=== PATIENT | female | born 1975 | race Caucasian/White ===

== ENCOUNTER 2020-12-31 12:59 | Emergency (ER) | payer OTHER, SELFPAY ==
--- NOTE | ~2020-12-31 | XR_ITS ---
XR foot LT min 3V 12/31/2020 13:28 Indication: Left foot pain Procedure: 4 views left foot Comparison: No prior studies for comparison. Findings: There is surgical fusion at the first, second and third tarsal-metatarsal joints. There is mild osteoarthritis of the first MTP joint. There are degenerative calcaneal spurs. There is a nondis placed fracture base of the fifth proximal phalanx. No significant soft tissue abnormality. No foreig n bodies. Impression: 1: Nondisplaced fracture base of the left fifth proximal phalanx. Reviewed, dictated and finalized at location A. Impression: 1: Nondisplaced fracture base of the left fifth proximal phalanx.
[2020-12-31 13:02] VITALS: BP 145/65; PULSE 91; RESP 20; TEMP 36.3; O2SAT 96
--- NOTE | 2020-12-31 14:46 | ED.GENADULT ---
HPI - General Adult General Chief complaint: Extremity Injury, Lower Stated complaint: LEFT FOOT INJURY Time Seen by Provider: 12/31/20 13:11 Source: patient Mode of arrival: ambulatory Limitations: no limitations History of Present Illness HPI narrative: Patient presents for evaluation of left foot pain. She indicates that she stubbed her foot against an unknown object at home just prior to arrival. She states she recently moved so there were many boxes in the living space. She states pain has been constant since that time. Pain at rest is 5/10 in severity but increased to 8/10 with weight bearing. She has some numbness in 5th digit of that foot. She has not taken any medication for her symptoms. Has had multiple surgeries on her left foot in the past. Related Data Allergies Allergy/AdvReac Type Severity Reaction Status Date / Time No Known Allergies Allergy Verified 12/31/20 13:04 Review of Systems Review of Systems: CONSTITUTIONAL: Denies fever, chills, or sweats. EYES: Denies visual changes, redness, or discharge. ENT: Denies rhinorrhea, congestion, sore throat, or otalgia. CARDIOVASCULAR: Denies chest pain, palpitations, or edema. RESPIRATORY: Denies cough or dyspnea. GASTROINTESTINAL: Denies abdominal pain, nausea, vomiting, or diarrhea. GENITOURINARY: Denies dysuria or hematuria. SKIN: Denies rash or itching. MUSCULOSKELETAL:Reports left foot pain. Denies back pain NEUROLOGIC: Reports numbness in 5th digit of left foot. Denies headache, dizziness, or weakness. PSYCHIATRIC: Denies anxiety or depression. [facility] Past Medical History Medical History (Updated 12/31/20 @ 15:14 by JOSSELYN GermainP, ) Hypertension Thyroid disease Surgical History Surgical History H/O thyroidectomy Status post left foot surgery Family History Family History (Reviewed 12/31/20 @ 15:10 by Eulogio Akbar [facility], ) Father Diabetes mellitus Social History Social History (Updated 12/31/20 @ 15:10 by JOSSELYN GermainP, ) Smoking packs per day: 0.5 Smoking cigarettes per day: 10.0 Smoking status: Current every day smoker Substance use: never Gender identity (if verbalized by the patient): Female Sexual Orientation (if Verbalized by the Patient): Straight or Heterosexual Spiritual care concerns: No Exam Narrative: GENERAL: Well-appearing, well-nourished, and in no acute distress. HEAD: Normocephalic, atraumatic. EYES: PERRLA and EOMI. ENT: Nares clear, no rhinorrhea or epistaxis. Mucous membranes moist. Oropharynx without tonsillar hypertrophy exudate or other lesions. Bilateral TMs pearly tomlinson nonbulging NECK: Supple. No adenopathy or masses. No carotid bruits or JVD CHEST: Clear to auscultation. No respiratory distress. No wheezes rales or rhonchi HEART: Regular rate and rhythm. No murmur heard. Normal peripheral pulses. ABDOMEN: Soft, nontender, nondistended, normal active bowel sounds. EXTREMITIES: Tenderness noted over the proximal phalanx of the fifth digit of the left foot as well as overlying the fourth and fifth metatarsals left foot. Normal range of motion. No edema. SKIN: Linear surgical scar overlying the dorsal aspect of the left foot with hyperpigmented changes noted. Scars well approximated without drainage or erythema. Warm, dry, no rash. NEURO: No focal deficits. Alert and oriented x3. PSYCH: Normal mood and affect. Course Course Emergency Course: Seven 45-year-old female who presented with complaints of left foot pain. X-ray showed nondisplaced fracture of the proximal phalanx of the fifth digit of the left foot. Toradol in the emergency department. Will discharge with a prescription for [place]. Fourth and fifth digits of the left foot were madhav taped and patient was provided with a postop shoe. Advised on necessity for follow up and return for worsening symptoms. Pt in agreement with plan of care. Vital Signs V
[2020-12-31] MEDS: KETOROLAC (*BKC) 60 MG/2 ML VIAL IM (14:52)
== END 2020-12-31 15:27 | disposition home or self-care (01) ==
PROVIDERS: Emergency Provider Nurse Practitioner
DX: S92.515A Nondisplaced fracture of proximal phalanx of left lesser toe(s), initial encounter for closed fracture (principal); I10 Essential (primary) hypertension; E07.9 Disorder of thyroid, unspecified; F17.210 Nicotine dependence, cigarettes, uncomplicated; W22.8XXA Striking against or struck by other objects, initial encounter
CPT/HCPCS: 73630; 96372; 99284; J1885

== ENCOUNTER 2021-05-25 19:40 | Emergency (ER) | payer OTHER, SELFPAY ==
--- NOTE | ~2021-05-25 | XR_ITS ---
EXAMINATION: XR knee LT 3V DATE: 05/25/2021 23:49 INDICATION: Left knee pain TECHNIQUE: Three views of the left knee were obtained. COMPARISON: None. FINDINGS: Alignment is normal. No fracture or osteochondral lesion. Joint spaces are normal with no e rosions. No joint effusion/synovitis. Soft tissues are unremarkable. IMPRESSION: 1. No acute osseous abnormality. Reviewed, dictated and finalized at location F. RITY LEAD
[2021-05-25 19:49] VITALS: BP 151/78; PULSE 97; RESP 18; TEMP 37; O2SAT 100
[2021-05-25 23:31] VITALS: BP 144/90; PULSE 80; RESP 17; O2SAT 98
--- NOTE | 2021-05-25 23:37 | ED.EXTPRO ---
HPI - Extremity Problem General Chief complaint: Extremity Problem,Nontraumatic Stated complaint: left knee pain Time Seen by Provider: 05/25/21 23:37 Source: patient Mode of arrival: ambulatory Limitations: no limitations History of Present Illness HPI Narrative: Patient complaining of left knee pain started few hours ago while vacuuming the floor.. Patient denies other injuries. Related Data Allergies Allergy/AdvReac Type Severity Reaction Status Date / Time No Known Allergies Allergy Verified 05/25/21 23:34 Review of Systems Review of Systems: CONSTITUTIONAL: Denies fever, chills, or sweats. EYES: Denies visual changes, redness, or discharge. ENT: Denies rhinorrhea, congestion, sore throat, or otalgia. CARDIOVASCULAR: Denies chest pain, palpitations, or edema. RESPIRATORY: Denies cough or dyspnea. GASTROINTESTINAL: Denies abdominal pain, nausea, vomiting, or diarrhea. GENITOURINARY: Denies dysuria or hematuria. SKIN: Denies rash or itching. MUSCULOSKELETAL: Denies back pain, joint pain, or myalgia. NEUROLOGIC: Denies headache, numbness, or weakness. PSYCHIATRIC: Denies anxiety or depression. PMFSH Past Medical History Medical History Hypertension Thyroid disease Surgical History Surgical History H/O thyroidectomy Status post left foot surgery Family History Family History Father Diabetes mellitus Social History Social History Smoking packs per day: 0.5 Smoking cigarettes per day: 10.0 Smoking status: Current every day smoker Substance use: never Gender identity (if verbalized by the patient): Female Sexual Orientation (if Verbalized by the Patient): Straight or Heterosexual Spiritual care concerns: No Exam Narrative: General appearance: Well-developed, well-nourished, patient is morbidly obese Skin: Normal color Head: Normocephalic, nontraumatic Neck: Supple, nontender Chest and respiratory: Airway patent, no respiratory distress, no accessory muscle use Heart: Regular rate/rhythm Musculoskeletal: Slight tenderness anterior medially, no bruises, no swelling, slight limited range of motion Neurologic: Alert and oriented ?3, Course Course Emergency Course: Stable Vital Signs Vital signs: Vital Signs Temperature 37.0 C 05/25/21 19:49 Pulse Rate 97 05/25/21 19:49 Respiratory Rate 18 05/25/21 19:49 Blood Pressure 151/78 H 05/25/21 19:49 Pulse Oximetry 100 05/25/21 19:49 Temperature 37.0 C 05/25/21 19:49 Pulse Rate 80 05/25/21 23:31 Respiratory Rate 17 05/25/21 23:31 Blood Pressure 144/90 H 05/25/21 23:31 Pulse Oximetry 98 05/25/21 23:31 MDM - Extremity (Nontraumatic) Imaging Data My impression: Left knee x-ray showed no acute abnormality Critical Care Time Critical Care Time Critical Care Time: No Discharge Plan Discharge Clinical Impression: Knee sprain Qualifiers: Encounter type: initial encounter Involved ligament of knee: unspecified ligament Laterality: left Qualified Code(s): S83.92XA - Sprain of unspecified site of left knee, initial encounter Patient Disposition: Home, Self-Care Condition: Stable Instructions: Antibiotic Form, Knee Sprain (ED), Knee Immobilizer (ED) Additional Instructions: Return if symptoms are worsening , call your family physician for appointment, take Tylenol as as needed for aches and pain, continue home medications., Ibuprofen 600 every 6 hours, knee immobilizer Prescriptions: No Action hydrocodone-acet
--- NOTE | 2021-05-25 23:46 | PC.NURSE ---
Pt to XRAY via w/c at this time.
[2021-05-25] MEDS: IBUPROFEN 400 MG TABLET 800 MG PO (23:57)
== END 2021-05-26 00:42 | disposition home or self-care (01) ==
PROVIDERS: Emergency Provider Emergency Medicine; PCP Internal Medicine
DX: S83.92XA Sprain of unspecified site of left knee, initial encounter (principal); I10 Essential (primary) hypertension; E89.0 Postprocedural hypothyroidism; F17.210 Nicotine dependence, cigarettes, uncomplicated; X50.9XXA Other and unspecified overexertion or strenuous movements or postures, initial encounter; Y93.E3 Activity, vacuuming
CPT/HCPCS: 73562; 99283; A9270

== ENCOUNTER 2021-11-06 17:06 | Emergency (ER) | payer OTHER, SELFPAY ==
[2021-11-06 17:23] VITALS: BP 143/73; PULSE 89; RESP 16; TEMP 36.4; O2SAT 98
--- NOTE | 2021-11-06 17:44 | ED.WOUNDLAC ---
HPI - Wound/Laceration General Chief Complaint: Wound/Laceration Stated Complaint: left big toe swollen Time Seen by Provider: 11/06/21 17:44 Source: patient Mode of arrival: ambulatory Limitations: no limitations History of Present Illness HPI narrative: 46 yo F presents with concern for infection to L great toe. Reports that she cut toenail approx. 1 wk ago. Started having pain, redness 4 to 5 days ago. Has had drainage from cuticle. Redness getting progressively worse with swelling and increased pain. Denies fever. No hx of DM. All systems reviewed and negative except as noted above. Related Data Home Medications Medication Instructions Recorded Confirmed atorvastatin 20 mg tablet 20 tablet PO DAILY 11/06/21 11/06/21 fenofibrate 160 mg tablet 160 tablet PO DAILY 11/06/21 11/06/21 fluoxetine 20 mg capsule 1 cap PO DAILY 11/06/21 11/06/21 gabapentin 300 mg capsule 1 cap PO HS 11/06/21 11/06/21 levothyroxine 50 mcg tablet 1 tablet PO DAILY 11/06/21 11/06/21 (Euthyrox) Allergies Allergy/AdvReac Type Severity Reaction Status Date / Time No Known Allergies Allergy Verified 11/06/21 17:20 Review of Systems Review of Systems: CONSTITUTIONAL: Denies fever, chills, or sweats. EYES: Denies visual changes, redness, or discharge. ENT: Denies rhinorrhea, congestion, sore throat, or otalgia. CARDIOVASCULAR: Denies chest pain, palpitations, or edema. RESPIRATORY: Denies cough or dyspnea. GASTROINTESTINAL: Denies abdominal pain, nausea, vomiting, or diarrhea. GENITOURINARY: Denies dysuria or hematuria. SKIN: Denies rash or itching. Reports redness, swelling, tenderness to left great toe. MUSCULOSKELETAL: Denies back pain, joint pain, or myalgia. NEUROLOGIC: Denies headache, numbness, or weakness. PSYCHIATRIC: Denies anxiety or depression. All other systems reviewed are negative, except as documented in HPI. [facility] Past Medical History Medical History Hypertension Thyroid disease Surgical History Surgical History H/O thyroidectomy Status post left foot surgery Family History Family History Father Diabetes mellitus Social History Social History Smoking packs per day: 0.5 Smoking cigarettes per day: 10.0 Smoking status: Current every day smoker Substance use: never Gender identity (if verbalized by the patient): Female Sexual Orientation (if Verbalized by the Patient): Straight or Heterosexual Spiritual care concerns: No Comments At time of signature, agree with nursing past medical, surgical, social and family history. There is no relevant family history pertinent to the presenting complaint. Exam Narrative: GENERAL: This is a well-nourished, well-developed patient, in no apparent distress. HEAD: normocephalic, atraumatic. EYES: PERRL. Sclera clear/white. Vision is grossly intact. EARS: External ears normal NOSE: External nose normal NECK: Neck supple, non-tender without lymphadenopathy, masses or thyromegaly. CARDIOVASCULAR: Regular rate and rhythm without murmurs, gallops, or rubs. RESPIRATORY: Clear to auscultation. Breath sounds equal bilaterally. No wheezes, rales, or rhonchi. SKIN: warm, Dry, intact with no suspicious lesions or rash, good texture and turgor. Erythema, swelling, tenderness on palpation to medial aspect of left great toe. Erythema is surrounding toenail. NEURO: awake, alert, and oriented to person, place and time. There were no obvious focal neurologic abnormalities. EXTREMITIES: No joint tenderness, effusion, or edema noted. Course Course Level of Care: Express Care Visit Vital Signs Vital signs: Vital Signs Temperature 36.4 C 11/06/21 17:23 Pulse Rate 89 11/06/21 17:23 Respiratory Rate 16 11/06/21 17:23 Blood Pressure 143/73 H 11/06/21 17:23
== END 2021-11-06 17:55 | disposition home or self-care (01) ==
PROVIDERS: Emergency Provider Nurse Practitioner Family
DX: L03.032 Cellulitis of left toe (principal); F17.210 Nicotine dependence, cigarettes, uncomplicated; I10 Essential (primary) hypertension; E89.0 Postprocedural hypothyroidism
CPT/HCPCS: 99213; G0463

== ENCOUNTER 2022-06-12 17:12 | Emergency (ER) | payer OTHER, SELFPAY ==
--- NOTE | ~2022-06-12 | XR_ITS ---
EXAMINATION: XR chest 2V DATE: 06/12/2022 18:03 INDICATION: Cough. TECHNIQUE: Frontal and lateral views of the chest were obtained. COMPARISON: None. FINDINGS: There is no pneumonia, pleural effusion, or pneumothorax. The heart size is normal. Surgica l clips in the right upper quadrant are likely from cholecystectomy. IMPRESSION: 1. No acute cardiopulmonary disease. Reviewed, dictated and finalized at location A. TEACHER
[2022-06-12 17:20] VITALS: BP 144/93; PULSE 76; RESP 16; TEMP 36.5; O2SAT 98
--- NOTE | 2022-06-12 17:51 | ED.GENADULT ---
HPI - General Adult General Chief complaint: Upper Respiratory Infection Stated complaint: fever, sore throat, rt ear pain Source: patient Mode of arrival: ambulatory Limitations: no limitations History of Present Illness HPI narrative: Patient presents for evaluation of sick symptoms since last week Saturday. She indicates she initially had a fever and sore throat. She has since developed bilateral otalgia, cough, mild wheezing and shortness of breath only during coughing episodes. she denies any nausea, vomiting, diarrhea. She states that her daughter had strep recently but she has only seen her once in the last week. She smokes approximately a quarter pack per day. She has never had COVID. She states that her fever has improved but she occasionally does have mild fever at night. Denies any other complaints or concerns. Related Data Home Medications Medication Instructions Recorded Confirmed fenofibrate 160 mg tablet 160 tablet PO DAILY 11/06/21 06/12/22 fluoxetine 20 mg capsule 1 cap PO DAILY 11/06/21 06/12/22 gabapentin 300 mg capsule 1 cap PO HS 11/06/21 06/12/22 atorvastatin 40 mg tablet 40 mg PO DAILY 06/12/22 06/12/22 levothyroxine 200 mcg tablet 200 mcg PO DAILY 06/12/22 06/12/22 Allergies Allergy/AdvReac Type Severity Reaction Status Date / Time No Known Allergies Allergy Verified 06/12/22 17:24 Review of Systems Review of Systems: CONSTITUTIONAL: Reports fever. Denies chills or sweats. EYES: Denies visual changes, redness, or discharge. ENT: Reports sore throat and bilateral otalgia.Denies rhinorrhea and congestion CARDIOVASCULAR: Denies chest pain, palpitations, or edema. RESPIRATORY: reports cough, mild wheezing and shortness of breath only with coughing episodes GASTROINTESTINAL: Denies abdominal pain, nausea, vomiting, or diarrhea. GENITOURINARY: Denies dysuria or hematuria. SKIN: Denies rash or itching. MUSCULOSKELETAL: Denies back pain, joint pain, or myalgia. NEUROLOGIC: Denies headache, numbness, dizziness, or weakness. PSYCHIATRIC: Denies anxiety or depression. [facility] Past Medical History Medical History (Updated 06/12/22 @ 18:52 by Eulogio Akbar, PAULA, HERNAN) Hypertension Thyroid disease Surgical History Surgical History H/O thyroidectomy History of cholecystectomy History of foot surgery Status post left foot surgery Family History Family History Father Diabetes mellitus Social History Social History (Updated 06/12/22 @ 17:55 by Eulogio Akbar [facility]) Smoking packs per day: 0.25 Smoking cigarettes per day: 5.0 Smoking status: Current every day smoker Substance use: never Gender identity (if verbalized by the patient): Female Sexual Orientation (if Verbalized by the Patient): Straight or Heterosexual Spiritual care concerns: No Exam Narrative: GENERAL: Well-appearing, well-nourished, and in no acute distress. HEAD: Normocephalic, atraumatic. EYES: PERRLA and EOMI. ENT: Nares clear, no rhinorrhea or epistaxis. Mucous membranes moist. Oropharynx without tonsillar hypertrophy exudate or other lesions. Bilateral TMs pearly tomlinson nonbulging NECK: Supple. No adenopathy or masses. No carotid bruits or JVD CHEST: Cough present on exam. Poor inspiratory effort. Clear to auscultation but diminished in the bases. No respiratory distress. No wheezes rales or rhonchi HEART: Regular rate and rhythm. No murmur heard. Normal peripheral pulses. ABDOMEN: Soft, nontender, nondistended, normal active bowel sounds. EXTREMITIES: Normal range of motion. No edema. SKIN: Warm, dry, no rash. NEURO: No focal deficits. Alert and oriented x3. PSYCH: Normal mood and affect. Course Course Emergency Course: This is a 47-year-old female who presented for evaluation of sick symptoms. Strep, COVID, influenza, chest x-ray were all negative. Exam is c
== END 2022-06-12 19:03 | disposition home or self-care (01) ==
PROVIDERS: Emergency Provider Nurse Practitioner; PCP Internal Medicine
DX: J06.9 Acute upper respiratory infection, unspecified (principal); Z20.822 Contact with and (suspected) exposure to COVID-19; F17.210 Nicotine dependence, cigarettes, uncomplicated; I10 Essential (primary) hypertension; E89.0 Postprocedural hypothyroidism
CPT/HCPCS: 71046; 87081; 87426; 87804; 87880; 99213; C9803; G0463

== ENCOUNTER 2022-07-02 15:10 | Emergency (ER) | payer OTHER, SELFPAY ==
[2022-07-02 15:24] VITALS: BP 142/88; PULSE 84; RESP 16; TEMP 36.9; O2SAT 98
--- NOTE | 2022-07-02 15:26 | ED.URI ---
HPI - URI/Sore Throat General Chief Complaint: Upper Respiratory Infection Stated Complaint: white spots on throat, rt ear hearing loss Time Seen by Provider: 07/02/22 15:20 Source: patient Mode of arrival: ambulatory Limitations: no limitations History of Present Illness HPI Narrative: Lizbeth is a 47-year-old female patient presenting to the clinic today with complaints of decreased hearing in the right ear as well as a sore throat with white spots on her tonsils. She reports that she has been sick for over 2 weeks. Was seen here in the clinic on June 12 and was prescribed prednisone, albuterol inhaler, and Mucinex DM. She had a COVID, flu, strep and chest x-ray done at that time and all these tests were negative. She reports that she has taken all the medicines and she states she feels worse. States that she feels as though her head is underwater. States she has a productive cough with some yellowish green mucus. She is a current smoker. She denies any sinus pressure or nasal drainage currently. No history of asthma or COPD. MD elicited complaint: cough, sore throat and other (Ear pain) Related Data Home Medications Medication Instructions Recorded Confirmed fenofibrate 160 mg tablet 160 tablet PO DAILY 11/06/21 07/02/22 fluoxetine 20 mg capsule 1 cap PO DAILY 11/06/21 07/02/22 gabapentin 300 mg capsule 1 cap PO HS 11/06/21 07/02/22 atorvastatin 40 mg tablet 40 mg PO DAILY 06/12/22 07/02/22 levothyroxine 200 mcg tablet 200 mcg PO DAILY 06/12/22 07/02/22 Allergies Allergy/AdvReac Type Severity Reaction Status Date / Time No Known Allergies Allergy Verified 07/02/22 15:21 Review of Systems Review of Systems: Pertinent positives per HPI. Patient denies any fever, chills, rash, headache, visual changes, dizziness,shortness of breath, chest pain, palpitations, nausea, vomiting, diarrhea, constipation, abdominal pain, or any urinary issues. PMFSH Past Medical History Medical History Hypertension Thyroid disease Surgical History Surgical History H/O thyroidectomy History of cholecystectomy History of foot surgery Status post left foot surgery Family History Family History Father Diabetes mellitus Social History Social History Smoking packs per day: 0.25 Smoking cigarettes per day: 5.0 Smoking status: Current every day smoker Substance use: never Gender identity (if verbalized by the patient): Female Sexual Orientation (if Verbalized by the Patient): Straight or Heterosexual Spiritual care concerns: No Comments At the time of my signature, I reviewed and agree with the nursing past medical, surgical, social, and family history. There is no relevant family history pertinent to the patient complaint. Exam Narrative: General: Well-developed, morbidly obese, in no apparent distress Head: Normocephalic, atraumatic Eyes: Pupils equally round and reactive to light bilaterally, EOM intact, sclera and conjunctive clear, no discharge, lids normal Ears: TMs intact, dull, congested, ear canals clear, no drainage, grossly hearing normal. Nose: Nares patent, clear nasal discharge, mild inflammation, no sinus tenderness. Mouth: Oral pharynx without lesions or masses, good dentition, MMM. Oropharynx red, postnasal drip Neck: Supple, trachea midline, no enlargement of anterior or posterior cervical nodes, no thyroid masses or goiter palpable. Cardio: Regular rate and rhythm, s1 and s2 normal, no murmur appreciated. Resp: Clear to auscultation bilaterally, no rhonchi, rales, wheezing or rubs Course Course Emergency Course: Portions of this record may have been created with voice recognition software. Level of Care: Express Care Visit Vital Signs
== END 2022-07-02 15:36 | disposition home or self-care (01) ==
PROVIDERS: Emergency Provider Nurse Practitioner Family; PCP Internal Medicine
DX: J06.9 Acute upper respiratory infection, unspecified (principal); H69.93 Unspecified Eustachian tube disorder, bilateral; J02.9 Acute pharyngitis, unspecified; F17.210 Nicotine dependence, cigarettes, uncomplicated; I10 Essential (primary) hypertension; E07.9 Disorder of thyroid, unspecified
CPT/HCPCS: 87081; 87880; 99213; G0463

== ENCOUNTER 2022-09-28 21:35 | Emergency (ER) | payer OTHER, SELFPAY ==
--- NOTE | ~2022-09-28 | CT_ITS ---
EXAMINATION: CT brain wo con DATE: 09/28/2022 22:14 INDICATION: headache, facial numbness, lip tingling . TECHNIQUE: Computed tomography (CT) of the head was performed without intravenous contrast. The mA wa s adjusted according to patient size. Iterative reconstruction technique was employed. The dose-lengt h product was 605.33 mGy-cm. COMPARISON: None. FINDINGS: No acute intracranial hemorrhage or extra-axial fluid collection. No hydrocephalus, mass, or herniation. No acute ischemic infarct. Unremarkable dural venous sinus attenuation. No acute osseous abnormality. Tiny retention cyst or polyp in the left inferior maxillary sinus, the remaining aerated spaces are c lear. IMPRESSION: No acute intracranial process. Reviewed, dictated and finalized at location K.
[2022-09-28 21:37] VITALS: BP 151/99; PULSE 97; RESP 18; TEMP 36.7; O2SAT 99
[2022-09-28 21:56] LABS: Basophils Absolute Auto 0.1 K/mm3 (0.0-0.1); Basophils Percent Auto 0.9 % (0.2-1.2); Eosinophils Absolute Auto 0.3 K/mm3 (0-0.3); Eosinophils Percent Auto 2.6 % (0-4.4); Hematocrit 39.2 % (37.0-47.0); Hemoglobin 12.9 g/dL (12.0-15.0); Immature Granulocyte Absolute 0.03 K/mm3 (0.00-0.031); Immature Granulocyte Percent A 0.3 % (0-0.5); Lymphocytes Absolute Auto 2.86 K/mm3 (0.9-3.2); Lymphocytes Percent Auto 28.3 % (18.3-44.2); Mean Corpuscular HGB Conc 32.9 g/dl (32-36); Mean Corpuscular Hemoglobin 28.7 pg (26-34); Mean Corpuscular Volume 87.1 fl (80-100); Mean Platelet Volume 10.9 fl (7.4-10.4); Monocytes Absolute Auto 0.6 K/mm3 (0.1-0.6); Monocytes Percent Auto 5.5 % (2.6-8.5); Neutrophils Absolute Auto 6.3 K/mm3 (1.3-6.7); Neutrophils Percent Auto 62.4 % (45.5-73.1); Platelet Count Result 211 k/mm3 (150-375); White Blood Count 10.1 K/mm3 (4.5-10.0)
[2022-09-28 22:06] LABS: Alanine Aminotransferase 32 U/L (6-35); Albumin Level 4.6 g/dL (3.5-5.1); Alkaline Phosphatase 71 U/L (38-126); Anion Gap 10 mmol/L (8-16); Aspartate Amino Transferase 28 U/L (14-36); Bilirubin,Total 0.5 mg/dL (0.2-1.3); Blood Urea Nitrogen 14 mg/dL (7-17); Calcium 8.8 mg/dL (8.4-10.2); Carbon Dioxide 25 mmol/L (22-30); Chloride 105 mmol/L (98-107); Estimated CRCL calculation 139 ml/min; Estimated Glomerular Filt Rate > 60; Glucose 112 mg/dL (65-110); Sodium 140 mmol/L (137-145)
[2022-09-28 23:54] VITALS: PULSE 70; O2SAT 95
[2022-09-29] MEDS: SODIUM CHLORIDE 0.9% IV 1,000 ML 999 ML IV CONT (00:44)
[2022-09-29] MEDS: METOCLOPRAMIDE HCL INJ 10 MG/2 ML VIAL IV PUSH (00:44)
[2022-09-29] MEDS: diphenhydrAMINE HCl INJ 50 MG/ML VIAL 12.5 MG IV PUSH (00:44)
[2022-09-29 00:59] VITALS: PULSE 75; O2SAT 96
--- NOTE | 2022-09-29 01:03 | ED.GENADULT ---
HPI - General Adult General Chief complaint: Headache Stated complaint: face numb, tingling lips Time Seen by Provider: 09/29/22 00:16 History of Present Illness HPI narrative: Patient 47-year-old female who presents emergency department with chief complaint of headache. Patient reports that while she was driving he became lightheaded and had a headache in the occipital region and reports that she felt as though everything was getting kind of dark and tunnel vision and then had a tingling sensation around her lips. The patient reports she did not actually pass out reports that she is feeling better since she is arrived to the emergency department denies weakness in her arms or legs denies numbness anywhere else other than her lips and reports that its not unilateral. Related Data Home Medications Medication Instructions Recorded Confirmed fenofibrate 160 mg tablet 160 tablet PO DAILY 11/06/21 07/02/22 fluoxetine 20 mg capsule 1 cap PO DAILY 11/06/21 07/02/22 gabapentin 300 mg capsule 1 cap PO HS 11/06/21 07/02/22 atorvastatin 40 mg tablet 40 mg PO DAILY 06/12/22 07/02/22 levothyroxine 200 mcg tablet 200 mcg PO DAILY 06/12/22 07/02/22 Allergies Allergy/AdvReac Type Severity Reaction Status Date / Time No Known Allergies Allergy Verified 09/28/22 21:41 Review of Systems Review of Systems: A 10 system review of systems was completed on the patient and is negative except for what is stated in the HPI. Nursing and ancillary documentation was reviewed. [facility] Past Medical History Medical History Hypertension Thyroid disease Surgical History Surgical History H/O thyroidectomy History of cholecystectomy History of foot surgery Status post left foot surgery Family History Family History Father Diabetes mellitus Social History Social History Smoking packs per day: 0.25 Smoking cigarettes per day: 5.0 Smoking status: Current every day smoker Substance use: never Gender identity (if verbalized by the patient): Female Sexual Orientation (if Verbalized by the Patient): Straight or Heterosexual Spiritual care concerns: No Exam Narrative: GENERAL: Well-appearing, well-nourished, and in no acute distress. HEAD: Normocephalic, atraumatic. EYES: PERRLA and EOMI. ENT: Nares clear, no rhinorrhea or epistaxis. Mucous membranes moist. NECK: Supple. CHEST: Clear to auscultation. No respiratory distress. HEART: Regular rate and rhythm. No murmur heard. Normal peripheral pulses. ABDOMEN: Soft, nontender, nondistended, normal active bowel sounds. EXTREMITIES: Normal range of motion. No edema. SKIN: Warm, dry, no rash. NEURO: No focal deficits. Alert and oriented x3. NIH is 0 PSYCH: Normal mood and affect. Course Vital Signs Vital signs: Vital Signs Temperature 36.7 C 09/28/22 21:37 Pulse Rate 97 09/28/22 21:37 Respiratory Rate 18 09/28/22 21:37 Blood Pressure 151/99 H 09/28/22 21:37 Pulse Oximetry 99 09/28/22 21:37 Oxygen Delivery Room Air 09/28/22 21:37 Temperature 36.7 C 09/28/22 21:37 Pulse Rate 97 09/28/22 21:37 Respiratory Rate 18 09/28/22 21:37 Blood Pressure 151/99 H 09/28/22 21:37 Pulse Oximetry 99 09/28/22 21:37 Oxygen Delivery Room Air 09/28/22 21:37 Medical Decision Making [facility] Narrative Medical decision making narrative: Differential diagnosis includes near syncope, migraine, dehydration, CVA Given the absence of unilateral symptoms and negative NIH stroke scale of [address] head likelihood of this being acute CVA is very low. Laboratory studies were obtained which were within normal limits. The patient was given a liter of normal saline and Reglan and 12.5 of Benadryl.
== END 2022-09-29 01:22 | disposition home or self-care (01) ==
PROVIDERS: Emergency Provider Emergency Medicine; PCP Internal Medicine
DX: R51.9 Headache, unspecified (principal); I10 Essential (primary) hypertension; E07.9 Disorder of thyroid, unspecified; F17.210 Nicotine dependence, cigarettes, uncomplicated
CPT/HCPCS: 36415; 70450; 80053; 85025; 96361; 96374; 96375; 99284; J1200; J2765; J7030

== ENCOUNTER 2023-05-01 17:10 | Emergency (ER) | payer OTHER, SELFPAY ==
[2023-05-01 17:41] VITALS: BP 117/87; PULSE 78; RESP 16; TEMP 36.6; O2SAT 99
--- NOTE | 2023-05-01 19:21 | PC.NURSE ---
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
== END 2023-05-01 19:21 | disposition left against medical advice (07) ==
PROVIDERS: Emergency Provider Registered Nurse; PCP Internal Medicine
DX: Z53.21 Procedure and treatment not carried out due to patient leaving prior to being seen by health care provider (principal)
CPT/HCPCS: 99199

== ENCOUNTER 2023-05-02 08:01 | Emergency (ER) | payer OTHER, SELFPAY ==
[2023-05-02 08:13] VITALS: BP 135/84; PULSE 82; RESP 16; TEMP 36.6; O2SAT 97
[2023-05-02 08:15] VITALS: BP 135/84; PULSE 82; RESP 16; TEMP 36.6; O2SAT 97
--- NOTE | 2023-05-02 08:15 | ED.EXTPRO ---
HPI - Extremity Problem General Chief complaint: Extremity Problem,Nontraumatic Stated complaint: L ARM/SHOULDER NUMBNESS Source: patient Mode of arrival: ambulatory Limitations: no limitations History of Present Illness HPI Narrative: 48 y/o female presented for c/o left arm tingling x4 days. States she woke one morning with pain to the back of the left shoulder, and the tingling shooting down the arm. Pain is worse when laying down or movement of the left arm, when she lowers the arm to her side she feels more tingling. States it feels better when lifting the left arm over head. She took muscle relaxer and ibuprofen with mild relief. Denies recent injury or overuse, however she does cross fit. Also reports possibly sleeping with arms raised. Denies cp, palpitations, sob, n/v/d/f/c. Right hand dominant. Related Data Home Medications Medication Instructions Recorded Confirmed fluoxetine 20 mg capsule 1 cap PO DAILY 11/06/21 05/02/23 levothyroxine 200 mcg tablet 200 mcg PO DAILY 06/12/22 05/02/23 bupropion HCl 150 mg 24 hr tablet, 150 mg PO DAILY 05/02/23 05/02/23 extended release buspirone 5 mg tablet 5 mg PO BID 05/02/23 05/02/23 famotidine 20 mg tablet 20 mg PO DAILY 05/02/23 05/02/23 Allergies Allergy/AdvReac Type Severity Reaction Status Date / Time No Known Allergies Allergy Verified 05/02/23 08:12 Review of Systems Review of Systems: CONSTITUTIONAL: Denies body aches, fever, chills EYES: Denies visual changes ENT: Denies rhinorrhea, congestion CARDIOVASCULAR: Denies chest pain, palpitations, or edema. RESPIRATORY: Denies cough or dyspnea. GASTROINTESTINAL: Denies abdominal pain, nausea, vomiting, or diarrhea. SKIN: Denies rash, itching, or wounds. MUSCULOSKELETAL: Reports left arm pain/tingling Denies back pain, joint pain, or myalgia. NEUROLOGIC: Denies headache, dizziness reports left arm numbness, tingling All systems reviewed & are unremarkable except as noted in HPI and below PMFSH Past Medical History Medical History Hypertension Thyroid disease Surgical History Surgical History H/O thyroidectomy History of cholecystectomy History of foot surgery Status post left foot surgery Family History Family History Father Diabetes mellitus Social History Social History Smoking packs per day: 0.25 Smoking cigarettes per day: 5.0 Smoking status: Current every day smoker Substance use: never Gender identity (if verbalized by the patient): Female Sexual Orientation (if Verbalized by the Patient): Straight or Heterosexual Spiritual care concerns: No Comments At time of signature, I have reviewed and agree with nursing past medical, surgical, social and family history unless otherwise noted. Please see nursing chart for further information. There is no relevant family history pertinent to the presenting complaint Exam Narrative: GENERAL: Well-appearing NECK: Supple. No cervical VPT, no paraspinal tenderness. CHEST: Speaks in full sentences. No respiratory distress. HEART: Regular rate and rhythm. Normal and equal peripheral pulses. EXTREMITIES: LUE has normal sensation, slightly limited range of motion at shoulder, endorses pain and tingling with movement. Reports the left arm feels hot with palpation over trap. Guarding left arm bent at elbow, stating she has more tingling with lowering the arm. Paresthesia reported to volar aspect of the LUE. Nontender over medial or lateral epicondyles; nontender shoulder. No ecchymosis. 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 No open wounds, or obvious deformity; alignment normal, pulse palpable and equal bilaterally, skin warm, dry, pink. Capillary refill less than 3 seconds. SKIN: Warm, dry, no
== END 2023-05-02 08:33 | disposition home or self-care (01) ==
PROVIDERS: Emergency Provider Nurse Practitioner Family; PCP Internal Medicine
DX: R20.2 Paresthesia of skin (principal); I10 Essential (primary) hypertension; F17.210 Nicotine dependence, cigarettes, uncomplicated; E89.0 Postprocedural hypothyroidism; K21.9 Gastro-esophageal reflux disease without esophagitis; E78.00 Pure hypercholesterolemia, unspecified; F41.9 Anxiety disorder, unspecified; F32.A Depression, unspecified
CPT/HCPCS: 99213; G0463